=== PATIENT | female | born 1935 | race Caucasian/White ===

== ENCOUNTER 2024-04-02 20:31 | Emergency (ER) | payer MEDICARE ==
[~2024-04-02] VITALS: Ht 160 cm; Wt 40.9 kg
[~2024-04-02 20:31] MED LIST: AMOX-419 PO; ATOR40TA PO; CARB1CAP5 PO; CLOP75TA34 PO; DOCU100C40 PO; FLO0.4C PO; LATA2.5D14 LEFTEYE; LATA2.5D14 RIGHTEYE; PRAM0.5T12 PO; RIVA1.5C30 PO
[2024-04-02 23:01] VITALS: TEMP 97.8
[2024-04-03 01:51] VITALS: BP 124/84; PULSE 81; RESP 14; O2SAT 99
== END 2024-04-03 02:02 | disposition home or self-care (01) ==
LOC: ER 20:32
DX: R41.82 Altered mental status, unspecified (principal); Z88.8 Allergy status to other drugs, medicaments and biological substances; Z79.899 Other long term (current) drug therapy; Z86.73 Personal history of transient ischemic attack (TIA), and cerebral infarction without residual deficits
CPT/HCPCS: 99285

== ENCOUNTER 2024-07-06 08:05 | Inpatient (IN) | payer MEDICARE, OTHER ==
[~2024-07-06] VITALS: Ht 165.1 cm; Wt 34.6 kg
[~2024-07-06 08:05] MED LIST changes: -AMOX-419 PO
[2024-07-06 09:05] LABS: BASOPHILS % (AUTO) 0.1 % (0-1); EOSINOPHILS % (AUTO) 0 % (0-6); HEMOGLOBIN 14.4 g/dl (12.0-16.0); LYMPHOCYTES # (AUTO) 0.3 X10'3 (1.1-4.8); LYMPHOCYTES % (AUTO) 1.4 % (21-51); MEAN CORPUSCULAR HEMOGLOBIN 32.3 PG (27.0-31.0); MEAN CORPUSCULAR HGB CONC 33.4 g/dL (33.0-36.5); MEAN CORPUSCULAR VOLUME 96.9 FL (78-98); MEAN PLATELET VOLUME 9.3 FL (7.4-10.4); MONOCYTES # (AUTO) 0.6 X10'3 (0-0.9); MONOCYTES % (AUTO) 3.2 % (2-12); NEUTROPHILS % (AUTO) 95.3 % (42-75); PLATELET COUNT 268 X10'3 (140-440); RED BLOOD COUNT 4.44 X10'6 (4.20-5.60); RED CELL DISTRIBUTION WIDTH 14.2 % (11.5-14.5); WHITE BLOOD COUNT 19.9 X10'3 (4.5-11.0)
[2024-07-06] MEDS: CefTRIAXone 2gm/D5W 50ml BAG 50 ML IV ONE (09:12)
[2024-07-06] MEDS: normal saline 1000ml 1,000 ML IV ONE ×2 (09:14→09:15)
[2024-07-06 09:17] LABS: ALBUMIN 3.3 G/DL (3.4-5.0); ANION GAP 11 (8-16); BLOOD UREA NITROGEN 29 MG/DL (7-18); BUN/CREATININE RATIO 32.6 (10.0-20.0); CALCIUM 9.9 MG/DL (8.5-10.1); CHLORIDE 104 MMOL/L (99-107); CREATININE 0.89 MG/DL (0.40-0.90); GLUCOSE 100 MG/DL (70-104); MAGNESIUM 1.7 MG/DL (1.5-2.4); SODIUM 145 MMOL/L (135-145); TOTAL CARBON DIOXIDE 30.2 MMOL/L (24-32); eCRCL 25 ML/MIN; eGFR 60 ML/MIN
[2024-07-06] MEDS: vancomycin/NS 1 GM ADD-VANTAGE 250 ML X 1 DOSE IV ONE (09:27)
[2024-07-06 09:31] LABS: POTASSIUM 2.9 MMOL/L (3.5-5.1)
[2024-07-06] MEDS ORDERED: potassium Cl 20mEq/100mL bag 100 ML IV PRN (09:35)
[2024-07-06] MEDS ORDERED: magnesium sulf-water 2g/50mL 50 ML IV PRN ×2 (09:35→10:00)
[2024-07-06] MEDS ORDERED: potassium Cl 40MEQ/1/2NS 520ml 520 ML IV PRN (09:35)
[2024-07-06] MEDS ORDERED: potassium Cl 40MEQ/270ML bag 250 ML IV PRN (09:35)
[2024-07-06] MEDS ORDERED: magnesium sulf-water 4G/100mL 100 ML IV PRN ×2 (09:35→10:00)
[2024-07-06] MEDS ORDERED: potassium Cl 20 mEq SR tablet PO PRN ×3 (09:35→10:00)
[2024-07-06] MEDS ORDERED: magnesium Cl slow-release 64mg tablet PO PRN (10:00)
[2024-07-06] MEDS ORDERED: mag hydrox/Alum hydrox/simeth 30ml oral suspension PO PRN (10:00)
[2024-07-06] MEDS ORDERED: acetaminophen 325mg tablet PO PRN (10:00)
[2024-07-06] MEDS ORDERED: ondansetron/PF 4mg/2ml inj IV PRN (10:00)
[2024-07-06] MEDS ORDERED: magnesium hydroxide 30ml (MOM) UD suspension PO PRN (10:00)
[2024-07-06] MEDS ORDERED: bisacodyl 10mg suppository rectal RC PRN (10:00)
[2024-07-06] MEDS: CefTRIAXone/D5W-Rocephin 1gm 50 ML IV SCH (10:00)
[2024-07-06] MEDS: potassium CL 10mEq/100ml bag 100 ML IV PRN (11:48)
[2024-07-06] MEDS: normal saline 1000ml 1,000 ML IV SCH (11:48)
[2024-07-06] MEDS: acetaminophen 650mg rectal suppository RC PRN (15:12)
[2024-07-06 15:45] LABS: BILIRUBIN,URINE NEGATIVE (Neg); CLARITY,URINE CLOUDY (Clear); COLOR,URINE YELLOW (Yellow); GLUCOSE, URINE NEGATIVE (Neg); KETONES,URINE TRACE mg/dl (Neg); LEUKOCYTE ESTERASE ,URINE TRACE (Neg); NITRITES, URINE NEGATIVE (Neg); OCCULT BLOOD,URINE NEGATIVE (Neg); PROTEIN,URINE TRACE mg/dl (Neg)
[2024-07-06 15:56] LABS: UA COLLECTION TYPE STRAIGHT CATH
[2024-07-06 15:57] LABS: BACTERIA,URINE 2+ /HPF (Neg); MUCUS STRANDS FEW /LPF (Neg); SQUAMOUS EPITHELIAL CELL,UR FEW /LPF (FEW); TRANSITIONAL EPI CELLS,URINE FEW /HPF; WBC,URINE 0-4 /HPF (0-4)
[2024-07-06] MEDS: docusate sod 100mg capsule PO SCH (20:00)
[2024-07-06] MEDS: K and/or MAG REPLACEMENT MC SCH (20:52)
[2024-07-06 20:55] VITALS: RESP 15; O2SAT 98
[2024-07-06 21:00] VITALS: BP 102/52; PULSE 72; RESP 15; TEMP 97.4; O2SAT 98
[2024-07-06] MEDS: potassium Cl 40MEQ/1/2NS 520ml 520 ML IV PRN (21:50)
[2024-07-06] MEDS: heparin, porcine 5000 units/ml vial SQ SCH (21:56)
[2024-07-07] MEDS: morphine 2 MG/ML inj. syringe IV PRN (01:04)
[2024-07-07 02:49] VITALS: O2SAT 98
[2024-07-07 06:00] VITALS: BP 97/58; PULSE 75; RESP 16; TEMP 99.1; O2SAT 97
[2024-07-07 07:13] LABS: BASOPHILS % (AUTO) 0.2 % (0-1); EOSINOPHILS % (AUTO) 0.1 % (0-6); HEMATOCRIT 37.8 % (35.0-45.0); HEMOGLOBIN 12.4 g/dl (12.0-16.0); LYMPHOCYTES # (AUTO) 0.3 X10'3 (1.1-4.8); LYMPHOCYTES % (AUTO) 1.3 % (21-51); MEAN CORPUSCULAR HEMOGLOBIN 31.8 PG (27.0-31.0); MEAN CORPUSCULAR HGB CONC 32.7 g/dL (33.0-36.5); MEAN CORPUSCULAR VOLUME 97.3 FL (78-98); MEAN PLATELET VOLUME 9.9 FL (7.4-10.4); MONOCYTES # (AUTO) 0.5 X10'3 (0-0.9); MONOCYTES % (AUTO) 2.2 % (2-12); NEUTROPHILS # (AUTO) 20.6 X10'3 (1.8-7.7); NEUTROPHILS % (AUTO) 96.2 % (42-75); PLATELET COUNT 231 X10'3 (140-440); RED BLOOD COUNT 3.89 X10'6 (4.20-5.60); RED CELL DISTRIBUTION WIDTH 14.4 % (11.5-14.5); WHITE BLOOD COUNT 21.4 X10'3 (4.5-11.0)
[2024-07-07 07:35] LABS: ALANINE AMINOTRANSFERASE 11 U/L (12-78); ALBUMIN 2.5 G/DL (3.4-5.0); ALBUMIN/GLOBULIN RATIO 0.7 (1.1-1.5); ALKALINE PHOSPHATASE 81 IU/L (46-116); ANION GAP 8 (8-16); ASPARTATE AMINO TRANSFERASE 26 U/L (10-37); BLOOD UREA NITROGEN 26 MG/DL (7-18); CALCIUM 8.4 MG/DL (8.5-10.1); CHLORIDE 114 MMOL/L (99-107); CREATININE 0.84 MG/DL (0.40-0.90); GLUCOSE 77 MG/DL (70-104); MAGNESIUM 1.6 MG/DL (1.5-2.4); PHOSPHORUS 1.4 MG/DL (2.3-4.5); SODIUM 145 MMOL/L (135-145); TOTAL CARBON DIOXIDE 22.9 MMOL/L (24-32); TOTAL PROTEIN 5.9 G/DL (6.4-8.2); eCRCL 26 ML/MIN; eGFR 64 ML/MIN
[2024-07-07 08:00] VITALS: RESP 16; O2SAT 97
[2024-07-07 10:00] VITALS: BP 119/62; PULSE 60; RESP 18; TEMP 97.8; O2SAT 94
[2024-07-07] MEDS ORDERED: FLU VACC TS2024-25(6MOS UP)/PF 45 MCG/0.5 ML SYRINGE IMVAC ONE (10:00)
[2024-07-07] MEDS: piperacillin/tazo 4.5gm/100ml 100 ML IV SCH (16:13)
[2024-07-07 18:00] VITALS: BP 121/70; PULSE 74; RESP 16; TEMP 98.1; O2SAT 94
[2024-07-07] MEDS: dextrose 50%-water 50ml dispensing syringe IV ONE (21:46)
[2024-07-07 22:00] VITALS: BP 143/85; PULSE 82; RESP 14; TEMP 98.2; O2SAT 94
[2024-07-08] VITALS (7 sets, daily range): BP systolic 132–148; BP diastolic 85–94; PULSE 54–68; RESP 12–20; TEMP 97.2–97.9; O2SAT 91–100
[2024-07-08] MEDS ORDERED: glucagon, human recombinant 1mg kit SUBCUT PRN (01:40)
[2024-07-08] MEDS ORDERED: DEXTROSE 15 GM of carb/4 tabs (each vial/BOTTLE has 4 tablets) PO PRN ×2 (01:40)
[2024-07-08] MEDS: dextrose 50%-water 50ml dispensing syringe IV PRN (01:47)
[2024-07-08] MEDS: dextrose 5%-water 1,000 ML IV SCH (02:57)
[2024-07-08 06:43] LABS: BASOPHILS % (AUTO) 0 % (0-1); EOSINOPHILS % (AUTO) 0.1 % (0-6); HEMATOCRIT 39.2 % (35.0-45.0); HEMOGLOBIN 12.7 g/dl (12.0-16.0); LYMPHOCYTES # (AUTO) 0.3 X10'3 (1.1-4.8); LYMPHOCYTES % (AUTO) 1.3 % (21-51); MEAN CORPUSCULAR HEMOGLOBIN 31.8 PG (27.0-31.0); MEAN CORPUSCULAR HGB CONC 32.4 g/dL (33.0-36.5); MEAN PLATELET VOLUME 9.9 FL (7.4-10.4); MONOCYTES # (AUTO) 0.5 X10'3 (0-0.9); MONOCYTES % (AUTO) 2.3 % (2-12); NEUTROPHILS # (AUTO) 21.3 X10'3 (1.8-7.7); NEUTROPHILS % (AUTO) 96.3 % (42-75); PLATELET COUNT 218 X10'3 (140-440); RED CELL DISTRIBUTION WIDTH 14.6 % (11.5-14.5); WHITE BLOOD COUNT 22.1 X10'3 (4.5-11.0)
[2024-07-08 06:47] LABS: ALANINE AMINOTRANSFERASE 9 U/L (12-78); ALBUMIN 2.4 G/DL (3.4-5.0); ALBUMIN/GLOBULIN RATIO 0.7 (1.1-1.5); ALKALINE PHOSPHATASE 94 IU/L (46-116); ANION GAP 7 (8-16); ASPARTATE AMINO TRANSFERASE 15 U/L (10-37); BILIRUBIN,TOTAL 0.8 MG/DL (0.1-1.0); BLOOD UREA NITROGEN 25 MG/DL (7-18); BUN/CREATININE RATIO 26.3 (10.0-20.0); CALCIUM 8.7 MG/DL (8.5-10.1); CHLORIDE 113 MMOL/L (99-107); CREATININE 0.95 MG/DL (0.40-0.90); GLUCOSE 239 MG/DL (70-104); MAGNESIUM 1.8 MG/DL (1.5-2.4); PHOSPHORUS 1.3 MG/DL (2.3-4.5); POTASSIUM 3.2 MMOL/L (3.5-5.1); SODIUM 146 MMOL/L (135-145); eCRCL 23 ML/MIN; eGFR 56 ML/MIN
[2024-07-08] MEDS: ferrous sulfate 325mg tablet PO SCH (15:25)
[2024-07-08] MEDS: multivitamins, therapeutics tablet PO SCH (15:25)
[2024-07-08] MEDS: lactose-reduced food (Ensure Enlive) - 237ml bottle PO SCH (18:00)
[2024-07-09 06:00] VITALS: BP 142/97; PULSE 70; RESP 14; TEMP 97.9; O2SAT 92
[2024-07-09 06:39] LABS: BASOPHILS % (AUTO) 0.1 % (0-1); EOSINOPHILS % (AUTO) 0 % (0-6); LYMPHOCYTES # (AUTO) 0.5 X10'3 (1.1-4.8); MEAN PLATELET VOLUME 10.1 FL (7.4-10.4); MONOCYTES # (AUTO) 0.7 X10'3 (0-0.9)
[2024-07-09 06:44] LABS: HEMATOCRIT 40.8 % (35.0-45.0); HEMOGLOBIN 13.7 g/dl (12.0-16.0); LYMPHOCYTES % (AUTO) 3.4 % (21-51); MEAN CORPUSCULAR HEMOGLOBIN 32.3 PG (27.0-31.0); MEAN CORPUSCULAR HGB CONC 33.5 g/dL (33.0-36.5); MEAN CORPUSCULAR VOLUME 96.5 FL (78-98); MONOCYTES % (AUTO) 5.1 % (2-12); NEUTROPHILS # (AUTO) 13.1 X10'3 (1.8-7.7); NEUTROPHILS % (AUTO) 91.4 % (42-75); PLATELET COUNT 204 X10'3 (140-440); RED BLOOD COUNT 4.23 X10'6 (4.20-5.60); RED CELL DISTRIBUTION WIDTH 14.1 % (11.5-14.5); WHITE BLOOD COUNT 14.3 X10'3 (4.5-11.0)
[2024-07-09] MEDS: dextrose 50%-water 50ml dispensing syringe IV PRN (07:55)
[2024-07-09 08:13] LABS: ALANINE AMINOTRANSFERASE 13 U/L (12-78); ALBUMIN 2.3 G/DL (3.4-5.0); ALBUMIN/GLOBULIN RATIO 0.6 (1.1-1.5); ALKALINE PHOSPHATASE 120 IU/L (46-116); ANION GAP 10 (8-16); ASPARTATE AMINO TRANSFERASE 19 U/L (10-37); BILIRUBIN,TOTAL 0.8 MG/DL (0.1-1.0); BLOOD UREA NITROGEN 18 MG/DL (7-18); BUN/CREATININE RATIO 23.1 (10.0-20.0); CALCIUM 8.5 MG/DL (8.5-10.1); CHLORIDE 115 MMOL/L (99-107); CREATININE 0.78 MG/DL (0.40-0.90); GLUCOSE 100 MG/DL (70-104); MAGNESIUM 1.6 MG/DL (1.5-2.4); POTASSIUM 3.4 MMOL/L (3.5-5.1); SODIUM 147 MMOL/L (135-145); eCRCL 28 ML/MIN; eGFR 70 ML/MIN
[2024-07-09] MEDS: heparin, porcine 5000 units/ml vial SQ SCH (08:20)
[2024-07-09 08:32] LABS: PHOSPHORUS 1.2 MG/DL (2.3-4.5)
[2024-07-09 08:59] LABS: ACANTHOCYTES 1+; PLATELET ESTIMATE NORMAL
[2024-07-09 09:00] LABS: BURR CELLS 1+
[2024-07-09 10:00] VITALS: BP 150/68; PULSE 75; RESP 16; TEMP 98.3; O2SAT 96
[2024-07-09] MEDS: cefazolin 2gm/D5W 100mL 100 ML IV SCH (17:29)
[2024-07-09 18:00] VITALS: BP 159/96; PULSE 74; RESP 18; TEMP 97.6; O2SAT 97
[2024-07-09] MEDS ORDERED: magnesium Cl slow-release 64mg tablet PO PRN (18:05)
[2024-07-09] MEDS ORDERED: magnesium sulf-water 4G/100mL 100 ML IV PRN (18:05)
[2024-07-09] MEDS ORDERED: magnesium sulf-water 2g/50mL 50 ML IV PRN (18:05)
[2024-07-09] MEDS ORDERED: potassium Cl 20 mEq SR tablet PO PRN (18:05)
[2024-07-09] MEDS: potassium Cl 20 mEq SR tablet PO PRN (20:18)
[2024-07-09] MEDS: Neutra Phos packet PO SCH (20:18)
[2024-07-09 22:00] VITALS: BP 131/79; PULSE 69; RESP 16; TEMP 99; O2SAT 98
[2024-07-09] MEDS: CefTRIAXone/D5W-Rocephin 1gm 50 ML IV SCH (22:20)
[2024-07-09] MEDS: methylPREDNISolone sod succ/PF 40mg inj. IV SCH (22:34)
[2024-07-09] MEDS: azithromycin/NS 500mg/250ml 250 ML IV ONE (23:12)
[2024-07-10] VITALS (8 sets, daily range): BP systolic 122–160; BP diastolic 76–104; PULSE 63–102; RESP 16–22; TEMP 97.1–98.4; O2SAT 90–95
[2024-07-10 08:30] LABS: BASOPHILS % (AUTO) 0.1 % (0-1); EOSINOPHILS % (AUTO) 0 % (0-6); HEMATOCRIT 39.6 % (35.0-45.0); LYMPHOCYTES # (AUTO) 0.3 X10'3 (1.1-4.8); LYMPHOCYTES % (AUTO) 3.6 % (21-51); MEAN CORPUSCULAR HEMOGLOBIN 31.6 PG (27.0-31.0); MEAN PLATELET VOLUME 10.6 FL (7.4-10.4); MONOCYTES # (AUTO) 0.2 X10'3 (0-0.9); MONOCYTES % (AUTO) 1.9 % (2-12); NEUTROPHILS # (AUTO) 7.6 X10'3 (1.8-7.7); NEUTROPHILS % (AUTO) 94.4 % (42-75); PLATELET COUNT 194 X10'3 (140-440); RED BLOOD COUNT 4.12 X10'6 (4.20-5.60); RED CELL DISTRIBUTION WIDTH 14.2 % (11.5-14.5); WHITE BLOOD COUNT 8.1 X10'3 (4.5-11.0)
[2024-07-10 12:40] LABS: ALANINE AMINOTRANSFERASE 9 U/L (12-78); ALBUMIN 2.2 G/DL (3.4-5.0); ALBUMIN/GLOBULIN RATIO 0.6 (1.1-1.5); ALKALINE PHOSPHATASE 97 IU/L (46-116); ANION GAP 10 (8-16); ASPARTATE AMINO TRANSFERASE 15 U/L (10-37); BILIRUBIN,TOTAL 0.6 MG/DL (0.1-1.0); BLOOD UREA NITROGEN 19 MG/DL (7-18); BUN/CREATININE RATIO 27.5 (10.0-20.0); CALCIUM 8.7 MG/DL (8.5-10.1); CHLORIDE 117 MMOL/L (99-107); CREATININE 0.69 MG/DL (0.40-0.90); GLUCOSE 151 MG/DL (70-104); MAGNESIUM 1.6 MG/DL (1.5-2.4); PHOSPHORUS 2.5 MG/DL (2.3-4.5); POTASSIUM 4.4 MMOL/L (3.5-5.1); SODIUM 150 MMOL/L (135-145); TOTAL CARBON DIOXIDE 23.4 MMOL/L (24-32); TOTAL PROTEIN 5.9 G/DL (6.4-8.2); eCRCL 32 ML/MIN; eGFR 81 ML/MIN
[2024-07-10] MEDS: cefazolin 2gm/D5W 100mL 100 ML IV SCH (12:45)
[2024-07-10] MEDS: dextrose 5%-normal saline 1,000 ML IV SCH (14:10)
[2024-07-10] MEDS ORDERED: glucagon, human recombinant 1mg kit SUBCUT PRN (14:10)
[2024-07-10] MEDS ORDERED: DEXTROSE 15 GM of carb/4 tabs (each vial/BOTTLE has 4 tablets) PO PRN ×2 (14:10)
[2024-07-10 15:04] LABS: HEMOGLOBIN A1C 5.5 % (4.5-6.2)
[2024-07-10] MEDS: azithromycin 250mg tablet PO SCH (16:52)
[2024-07-10] MEDS: INSULIN LISPRO 100 UNIT/ML INSULN.PEN MULTI-DOSE SQ SCH (17:00)
[2024-07-10] MEDS ORDERED: insulin glargine (Lantus) pen - multi-dose SQ SCH (21:00)
[2024-07-10] MEDS: insulin glargine (Lantus) pen - multi-dose SQ ONE (22:13)
[2024-07-11] VITALS (9 sets, daily range): BP systolic 108–160; BP diastolic 78–104; PULSE 66–103; RESP 12–23; TEMP 97–98.2; O2SAT 91–99
[2024-07-11] MEDS: morphine 2 MG/ML inj. syringe IV PRN (00:14)
[2024-07-11 04:38] LABS: ABG BASE EXCESS 1.4 mmol/L (-2.0-3.0); ABG HCO3 24.1 mmol/L (21.0-28.0); ABG OXYGEN SATURATION 99.5 % (94.0-98.0); ABG PCO2 (T) 32.2 mmHg (32.0-45.0); ABG PH (T) 7.491 (7.350-7.450); ABG PO2 (T) 215.7 mmHg (83.0-108.0); ALLEN'S TEST POSITIVE; FCOHb 0.3 % (0.5-1.5); FHHb 0.5 % (0.0-5.0); FLOW 6 L/min; FMetHb 0.3 % (0.0-1.5); FO2Hb 98.9 % (94.0-98.0); MODE MASK - SIMPLE; PATIENT TEMPERATURE 36.8; TOTAL HEMOGLOBIN 13.5 G/dl (12.0-16.0)
[2024-07-11] MEDS: ipratropium/albuterol 3ml nebule NEB PRN (04:44)
[2024-07-11] MEDS: furosemide 20 MG/2 ML vial IV ONE (04:45)
[2024-07-11 05:19] LABS: BASOPHILS % (AUTO) 0.1 % (0-1); EOSINOPHILS % (AUTO) 0 % (0-6); HEMOGLOBIN 12.8 g/dl (12.0-16.0); MONOCYTES # (AUTO) 1.1 X10'3 (0-0.9)
[2024-07-11 05:21] LABS: HEMATOCRIT 38.9 % (35.0-45.0); LYMPHOCYTES # (AUTO) 0.6 X10'3 (1.1-4.8); LYMPHOCYTES % (AUTO) 4.8 % (21-51); MEAN CORPUSCULAR HEMOGLOBIN 31.7 PG (27.0-31.0); MEAN CORPUSCULAR HGB CONC 32.9 g/dL (33.0-36.5); MEAN CORPUSCULAR VOLUME 96.3 FL (78-98); MEAN PLATELET VOLUME 10.4 FL (7.4-10.4); MONOCYTES % (AUTO) 8.6 % (2-12); NEUTROPHILS # (AUTO) 11.5 X10'3 (1.8-7.7); NEUTROPHILS % (AUTO) 86.5 % (42-75); PLATELET COUNT 215 X10'3 (140-440); RED BLOOD COUNT 4.04 X10'6 (4.20-5.60); RED CELL DISTRIBUTION WIDTH 14.3 % (11.5-14.5); WHITE BLOOD COUNT 13.3 X10'3 (4.5-11.0)
[2024-07-11 05:26] LABS: ALANINE AMINOTRANSFERASE 9 U/L (12-78); ALBUMIN 2.2 G/DL (3.4-5.0); ALBUMIN/GLOBULIN RATIO 0.6 (1.1-1.5); ALKALINE PHOSPHATASE 99 IU/L (46-116); ANION GAP 8 (8-16); ASPARTATE AMINO TRANSFERASE 19 U/L (10-37); BILIRUBIN,TOTAL 0.5 MG/DL (0.1-1.0); BLOOD UREA NITROGEN 21 MG/DL (7-18); BUN/CREATININE RATIO 25.9 (10.0-20.0); CALCIUM 8.7 MG/DL (8.5-10.1); CHLORIDE 116 MMOL/L (99-107); CREATININE 0.81 MG/DL (0.40-0.90); GLUCOSE 138 MG/DL (70-104); MAGNESIUM 1.6 MG/DL (1.5-2.4); PHOSPHORUS 2.7 MG/DL (2.3-4.5); POTASSIUM 3.7 MMOL/L (3.5-5.1); PRO BRAIN NATRIURETIC PEPTIDE 11532 PG/ML (0-450); SODIUM 151 MMOL/L (135-145); TOTAL CARBON DIOXIDE 27.3 MMOL/L (24-32); eCRCL 27 ML/MIN; eGFR 67 ML/MIN
[2024-07-11] MEDS: albumin (human) 25% 100 ML IV solution IV ONE (12:51)
[2024-07-11] MEDS: insulin glargine (Lantus) pen - multi-dose SQ SCH (20:49)
[2024-07-11] MEDS: hydrALAZINE 20mg/ml inj. IV ONE (22:18)
[2024-07-12 06:00] VITALS: BP 165/96; PULSE 73; RESP 15; TEMP 97.1; O2SAT 90
[2024-07-12] MEDS: dextrose 50%-water 50ml dispensing syringe IV PRN ×2 (08:22→13:30)
[2024-07-12 08:30] VITALS: RESP 18; O2SAT 98
[2024-07-12 10:00] VITALS: BP 133/81; PULSE 73; RESP 18; TEMP 98.1; O2SAT 100
[2024-07-12 11:05] VITALS: PULSE 79; RESP 20; O2SAT 99
[2024-07-12 15:18] VITALS: O2SAT 99
[2024-07-13 02:35] VITALS: PULSE 82; RESP 20; O2SAT 97
[2024-07-13 11:46] VITALS: PULSE 58; RESP 20; O2SAT 95
[2024-07-13] MEDS ORDERED: POTASSIUM CHLORIDE 20 MEQ/15 ML oral solution NG PRN ×2 (15:44→15:45)
[2024-07-13] MEDS ORDERED: DEXTROSE 15 GM of carb/4 tabs (each vial/BOTTLE has 4 tablets) NG PRN ×2 (15:45)
[2024-07-13] MEDS ORDERED: acetaminophen 325mg tablet NG PRN (15:45)
[2024-07-13] MEDS ORDERED: magnesium hydroxide 30ml (MOM) UD suspension NG PRN (15:47)
[2024-07-13] MEDS ORDERED: mag hydrox/Alum hydrox/simeth 30ml oral suspension NG PRN (15:47)
[2024-07-13 16:26] LABS: PREALBUMIN 11.7 MG/DL (19-36)
[2024-07-13 18:00] VITALS: BP 140/87; PULSE 67; RESP 14; TEMP 98.1; O2SAT 91
[2024-07-13] MEDS: lactose-reduced food (Ensure Enlive) - 237ml bottle NG SCH (18:00)
[2024-07-13 19:42] LABS: ALANINE AMINOTRANSFERASE 17 U/L (12-78); ALBUMIN 2.2 G/DL (3.4-5.0); ALBUMIN/GLOBULIN RATIO 0.6 (1.1-1.5); ALKALINE PHOSPHATASE 107 IU/L (46-116); ANION GAP 7 (8-16); ASPARTATE AMINO TRANSFERASE 24 U/L (10-37); BILIRUBIN,TOTAL 0.8 MG/DL (0.1-1.0); BLOOD UREA NITROGEN 16 MG/DL (7-18); BUN/CREATININE RATIO 23.5 (10.0-20.0); CALCIUM 8.9 MG/DL (8.5-10.1); CHLORIDE 111 MMOL/L (99-107); CREATININE 0.68 MG/DL (0.40-0.90); GLUCOSE 103 MG/DL (70-104); SODIUM 149 MMOL/L (135-145); TOTAL CARBON DIOXIDE 30.8 MMOL/L (24-32); TOTAL PROTEIN 5.9 G/DL (6.4-8.2); eCRCL 32 ML/MIN; eGFR 82 ML/MIN
[2024-07-13 19:46] LABS: POTASSIUM 2.9 MMOL/L (3.5-5.1)
[2024-07-13] MEDS: Neutra Phos packet NG SCH (21:00)
[2024-07-13 22:00] VITALS: BP 142/93; PULSE 81; RESP 15; TEMP 98.4; O2SAT 95
[2024-07-13] MEDS: POTASSIUM CHLORIDE 20 MEQ/15 ML oral solution PO STA (22:15)
[2024-07-13] MEDS: potassium Cl 40MEQ/1/2NS 520ml 520 ML IV PRN (23:01)
[2024-07-14 07:27] LABS: BASOPHILS % (AUTO) 0.1 % (0-1); EOSINOPHILS % (AUTO) 0.3 % (0-6); HEMATOCRIT 37.1 % (35.0-45.0); HEMOGLOBIN 11.9 g/dl (12.0-16.0); LYMPHOCYTES # (AUTO) 0.7 X10'3 (1.1-4.8); LYMPHOCYTES % (AUTO) 7.4 % (21-51); MEAN CORPUSCULAR HGB CONC 32.1 g/dL (33.0-36.5); MEAN CORPUSCULAR VOLUME 96.7 FL (78-98); MEAN PLATELET VOLUME 10.9 FL (7.4-10.4); MONOCYTES # (AUTO) 0.5 X10'3 (0-0.9); MONOCYTES % (AUTO) 5.6 % (2-12); NEUTROPHILS # (AUTO) 8.4 X10'3 (1.8-7.7); NEUTROPHILS % (AUTO) 86.6 % (42-75); PLATELET COUNT 268 X10'3 (140-440); RED BLOOD COUNT 3.84 X10'6 (4.20-5.60); RED CELL DISTRIBUTION WIDTH 14.2 % (11.5-14.5); WHITE BLOOD COUNT 9.7 X10'3 (4.5-11.0)
[2024-07-14] MEDS: dextrose 5%-water 1,000 ML IV SCH (07:27)
[2024-07-14 07:29] LABS: ALBUMIN/GLOBULIN RATIO 0.6 (1.1-1.5); ALKALINE PHOSPHATASE 103 IU/L (46-116); ANION GAP 2 (8-16); ASPARTATE AMINO TRANSFERASE 22 U/L (10-37); BILIRUBIN,TOTAL 0.5 MG/DL (0.1-1.0); BLOOD UREA NITROGEN 18 MG/DL (7-18); CALCIUM 8.3 MG/DL (8.5-10.1); CHLORIDE 111 MMOL/L (99-107); CREATININE 0.72 MG/DL (0.40-0.90); GLUCOSE 158 MG/DL (70-104); POTASSIUM 3.3 MMOL/L (3.5-5.1); SODIUM 145 MMOL/L (135-145); TOTAL CARBON DIOXIDE 32.1 MMOL/L (24-32); TOTAL PROTEIN 5.5 G/DL (6.4-8.2); eCRCL 31 ML/MIN; eGFR 77 ML/MIN
[2024-07-14 07:36] LABS: ALANINE AMINOTRANSFERASE < 6 U/L (12-78)
[2024-07-14] MEDS: ferrous sulfate 300mg/5ml UD oral liquid NG SCH (08:00)
[2024-07-14] MEDS: MULTIVIT-MIN/FERROUS GLUCONATE 9 MG/15 ML LIQUID NG SCH (08:00)
[2024-07-14 09:04] LABS: BURR CELLS 2+; PLATELET ESTIMATE NORMAL
[2024-07-14 09:54] VITALS: PULSE 76; RESP 18; O2SAT 95
[2024-07-14 10:00] VITALS: BP 149/69; PULSE 69; RESP 18; TEMP 98.4; O2SAT 100
[2024-07-14] MEDS: Potassium Cl 40 MEQ in sodium chloride 0.45% 500 ML IV SCH (10:34)
[2024-07-14] MEDS: furosemide 40mg/4ml inj IV SCH (14:12)
[2024-07-14] MEDS ORDERED: HYDROmorphone inj. 0.5 MG/0.5 ML DISP.SYRIN IV PRN (15:50)
[2024-07-14] MEDS ORDERED: morphine 2 MG/ML inj. syringe IV PRN ×2 (15:50)
[2024-07-14] MEDS ORDERED: metoclopramide 5 mg/ml inj IV PRN (15:50)
[2024-07-14] MEDS ORDERED: HYDROmorphone/PF 0.2 MG/ML SYRINGE IV PRN (15:50)
[2024-07-14 22:00] VITALS: BP 136/89; PULSE 70; RESP 17; TEMP 98.2; O2SAT 96
[2024-07-15 03:56] VITALS: PULSE 70; RESP 19; O2SAT 97
[2024-07-15 07:40] VITALS: RESP 14; O2SAT 96
[2024-07-15 07:59] LABS: HEMOGLOBIN 12.4 g/dl (12.0-16.0); LYMPHOCYTES # (AUTO) 0.8 X10'3 (1.1-4.8); MONOCYTES # (AUTO) 0.7 X10'3 (0-0.9)
[2024-07-15 08:02] LABS: BASOPHILS % (AUTO) 0.2 % (0-1); EOSINOPHILS % (AUTO) 0.5 % (0-6); HEMATOCRIT 37.1 % (35.0-45.0); LYMPHOCYTES % (AUTO) 8.2 % (21-51); MEAN CORPUSCULAR HEMOGLOBIN 32.2 PG (27.0-31.0); MEAN CORPUSCULAR HGB CONC 33.3 g/dL (33.0-36.5); MEAN CORPUSCULAR VOLUME 96.7 FL (78-98); MEAN PLATELET VOLUME 10.9 FL (7.4-10.4); MONOCYTES % (AUTO) 6.6 % (2-12); NEUTROPHILS # (AUTO) 8.6 X10'3 (1.8-7.7); NEUTROPHILS % (AUTO) 84.5 % (42-75); PLATELET COUNT 307 X10'3 (140-440); RED BLOOD COUNT 3.84 X10'6 (4.20-5.60); RED CELL DISTRIBUTION WIDTH 14.1 % (11.5-14.5); WHITE BLOOD COUNT 10.2 X10'3 (4.5-11.0)
[2024-07-15 08:29] LABS: ALANINE AMINOTRANSFERASE 9 U/L (12-78); ALBUMIN/GLOBULIN RATIO 0.5 (1.1-1.5); ALKALINE PHOSPHATASE 100 IU/L (46-116); ANION GAP 5 (8-16); ASPARTATE AMINO TRANSFERASE 28 U/L (10-37); BILIRUBIN,TOTAL 0.6 MG/DL (0.1-1.0); BLOOD UREA NITROGEN 18 MG/DL (7-18); BUN/CREATININE RATIO 25.4 (10.0-20.0); CALCIUM 8.8 MG/DL (8.5-10.1); CHLORIDE 106 MMOL/L (99-107); CREATININE 0.71 MG/DL (0.40-0.90); GLUCOSE 90 MG/DL (70-104); POTASSIUM 3.8 MMOL/L (3.5-5.1); SODIUM 142 MMOL/L (135-145); TOTAL CARBON DIOXIDE 30.6 MMOL/L (24-32); TOTAL PROTEIN 5.7 G/DL (6.4-8.2); eCRCL 31 ML/MIN; eGFR 78 ML/MIN
[2024-07-15 09:40] VITALS: PULSE 92; RESP 20; O2SAT 96
[2024-07-15 10:00] VITALS: BP 153/93; PULSE 69; RESP 18; TEMP 97.8; O2SAT 95
[2024-07-15 14:50] VITALS: RESP 12
[2024-07-15 22:00] VITALS: BP 137/82; PULSE 62; RESP 15; TEMP 97.7; O2SAT 98
[2024-07-16 08:05] LABS: EOSINOPHILS # (AUTO) 0.1 X10'3 (0-0.9); HEMOGLOBIN 12.6 g/dl (12.0-16.0); LYMPHOCYTES # (AUTO) 0.8 X10'3 (1.1-4.8); MEAN CORPUSCULAR VOLUME 96.5 FL (78-98); MONOCYTES # (AUTO) 0.9 X10'3 (0-0.9); NEUTROPHILS # (AUTO) 9.5 X10'3 (1.8-7.7); WHITE BLOOD COUNT 11.4 X10'3 (4.5-11.0)
[2024-07-16 08:10] LABS: BASOPHILS % (AUTO) 0.4 % (0-1); EOSINOPHILS % (AUTO) 1.3 % (0-6); HEMATOCRIT 38.7 % (35.0-45.0); LYMPHOCYTES % (AUTO) 7.3 % (21-51); MEAN CORPUSCULAR HEMOGLOBIN 31.4 PG (27.0-31.0); MEAN CORPUSCULAR HGB CONC 32.5 g/dL (33.0-36.5); MEAN PLATELET VOLUME 10.8 FL (7.4-10.4); MONOCYTES % (AUTO) 7.6 % (2-12); NEUTROPHILS % (AUTO) 83.4 % (42-75); PLATELET COUNT 377 X10'3 (140-440); RED BLOOD COUNT 4.01 X10'6 (4.20-5.60)
[2024-07-16 08:24] LABS: ALANINE AMINOTRANSFERASE 10 U/L (12-78); ALBUMIN 2.1 G/DL (3.4-5.0); ALBUMIN/GLOBULIN RATIO 0.5 (1.1-1.5); ALKALINE PHOSPHATASE 106 IU/L (46-116); ANION GAP 4 (8-16); ASPARTATE AMINO TRANSFERASE 28 U/L (10-37); BILIRUBIN,TOTAL 0.7 MG/DL (0.1-1.0); BLOOD UREA NITROGEN 22 MG/DL (7-18); BUN/CREATININE RATIO 30.6 (10.0-20.0); CALCIUM 9.1 MG/DL (8.5-10.1); CHLORIDE 108 MMOL/L (99-107); CREATININE 0.72 MG/DL (0.40-0.90); GLUCOSE 98 MG/DL (70-104); POTASSIUM 3.8 MMOL/L (3.5-5.1); SODIUM 145 MMOL/L (135-145); TOTAL CARBON DIOXIDE 33.5 MMOL/L (24-32); eCRCL 31 ML/MIN; eGFR 77 ML/MIN
[2024-07-16 08:34] VITALS: RESP 14; O2SAT 95
[2024-07-16 10:00] VITALS: BP 125/79; PULSE 74; RESP 19; TEMP 98.4; O2SAT 95
[2024-07-16 10:24] LABS: PLATELET ESTIMATE NORMAL
[2024-07-16 10:25] LABS: ACANTHOCYTES FEW; BURR CELLS 1+
[2024-07-16 14:43] VITALS: RESP 22
[2024-07-16 14:54] VITALS: PULSE 76; RESP 20; O2SAT 96
== END 2024-07-16 16:15 | disposition hospice, home (50) | DRG 871 ==
LOC: ER 08:06 → ED HOLD 10:15 → ORTHO 4S 20:50
PROVIDERS: ADMIT Registered Nurse Psychiatric/Mental Health; ATTEND Registered Nurse Psychiatric/Mental Health
DX: A41.01 Sepsis due to Methicillin susceptible Staphylococcus aureus (principal); G93.41 Metabolic encephalopathy; I33.0 Acute and subacute infective endocarditis; J69.0 Pneumonitis due to inhalation of food and vomit; J96.00 Acute respiratory failure, unspecified whether with hypoxia or hypercapnia; J18.9 Pneumonia, unspecified organism; J44.1 Chronic obstructive pulmonary disease with (acute) exacerbation; E87.0 Hyperosmolality and hypernatremia; J44.0 Chronic obstructive pulmonary disease with (acute) lower respiratory infection; Z20.822 Contact with and (suspected) exposure to COVID-19; F02.80 Dementia in other diseases classified elsewhere, unspecified severity, without behavioral disturbance, psychotic disturbance, mood disturbance, and anxiety; G20.A1 Parkinson's disease without dyskinesia, without mention of fluctuations; Z66 Do not resuscitate; E87.6 Hypokalemia; E83.39 Other disorders of phosphorus metabolism; R73.9 Hyperglycemia, unspecified; R13.12 Dysphagia, oropharyngeal phase; E78.5 Hyperlipidemia, unspecified; Z51.5 Encounter for palliative care; Z88.1 Allergy status to other antibiotic agents; Z79.899 Other long term (current) drug therapy; Z86.73 Personal history of transient ischemic attack (TIA), and cerebral infarction without residual deficits; Z87.440 Personal history of urinary (tract) infections; Z23 Encounter for immunization
CPT/HCPCS: 36415; 36600; 71045; 74176; 80048; 80053; 81001; 82803; 82948; 83036; 83605; 83735; 83880; 84100; 84134; 84145; 85008; 85018; 85025; 87040; 87077; 87081; 87088; 87186; 87811; 90686; 92508; 92616; 93005; 93306; 94640; 94760; 97161; 97530; 99285; A4314; A4615; A4620; A6212; A6213; A6449; G0378; J0360; J0456; J0690; J0696; J1644; J1815; J1940; J2270; J2543; J2919; J3370; J3480; J3490; J7030; J7042; J7070; P9047